=== PATIENT | female | born 1935 | race Caucasian/White ===

== ENCOUNTER 2016-09-28 18:30 | Inpatient (IN) | payer OTHER, MEDICARE ==
[~2016-09-28] VITALS: Ht 154.9 cm; Wt 69.3 kg
[~2016-09-28 18:30] MED LIST: GLUC10TA3 PO; LANTINJ SC; LISI-363 PO; MECL25 PO; SIMV40TA PO
[2016-09-28 18:45] VITALS: BP 195/73; PULSE 60; RESP 18; TEMP 98.2; O2SAT 96
[2016-09-28 18:50] VITALS: O2SAT 96
[2016-09-28] MEDS ORDERED: LISI-515 PO (18:57)
[2016-09-28] MEDS ORDERED: GLIP5TAB8 PO (18:57)
[2016-09-28] MEDS ORDERED: LANTUS2P SQ (18:57)
[2016-09-28] MEDS ORDERED: SIMV40TA PO (18:57)
[2016-09-28] MEDS ORDERED: SODIUM CHLORIDE 0.9% FLUSH 5 ML FLUSH IVF PRN (19:00)
[2016-09-28 19:15] LABS: AUTOMATED NEUTROPHIL # 13.6 TH/MM3 (1.8-7.7); BASOPHIL # 0.1 TH/MM3 (0-0.2); BASOPHIL % 0.5 % (0.0-2.0); EOSINOPHIL # 0.1 TH/MM3 (0-0.4); EOSINOPHIL % 0.7 % (0.0-4.0); HEMATOCRIT 37.3 % (35.0-46.0); HEMO FLAGS DIFF FINAL; LYMPH % 7.4 % (9.0-44.0); LYMPHOCYTE # 1.2 TH/MM3 (1.0-4.8); MEAN CELL VOLUME 88.8 FL (80.0-100.0); MEAN CORPUSCULAR HEMOGLOBIN 29.5 PG (27.0-34.0); MEAN CORPUSCULAR HGB CONC 33.3 % (32.0-36.0); NEUT % 87.4 % (16.0-70.0); PLATELET COUNT 358 TH/MM3 (150-450); RED CELL DISTRIBUTION WIDTH 12.2 % (11.6-17.2); WHITE BLOOD COUNT 15.6 TH/MM3 (4.0-11.0)
[2016-09-28 19:21] LABS: CHLORIDE 102 MEQ/L (98-107); POTASSIUM 3.7 MEQ/L (3.5-5.1); SODIUM (NA) 136 MEQ/L (136-145)
[2016-09-28 19:25] LABS: ANION GAP 11 MEQ/L (5-15); BLOOD UREA NITROGEN 22 MG/DL (7-18)
[2016-09-28 19:27] LABS: ALT (GPT) 41 U/L (10-53); AST (GOT) 36 U/L (15-37)
[2016-09-28 19:28] LABS: GLOMERULAR FILTRATION RATE 29 ML/MIN (>89)
[2016-09-28 19:29] LABS: TOTAL BILIRUBIN ADULT 0.3 MG/DL (0.2-1.0)
[2016-09-28 19:30] LABS: ALKALINE PHOSPHATASE 78 U/L (45-117)
--- NOTE | 2016-09-28 19:39 | PD ---
HPI Chief Complaint: Chest Pain Time Seen by Provider: 18:45 Travel History International Travel<30 days: No Contact w/Intl Traveler<30days: No Traveled to known affect area: No History of Present Illness HPI Patient is an 81-year-old female presents today with chief complaint of chest pain. Patient is also coming by her son who states that she was being brought into the emergency department for the chest pain but she is also been having nausea vomiting and diarrhea since [place] and some lower quadrant abdominal pain. Per the son patient is being brought into the emergency department for abdominal pain and started complaining of chest pain in route. She was concerned because she become fairly rundown. Has not followed up with her primary care physician. States her abdominal pain is sharp in nature particularly left lower quadrant. Intermittent. She states the pain in her left side of her chest is sharp. Patient is difficult to ascertain history from and when I ask her son if she has a history of Alzheimer's dementia he says he thinks is a possibility because of the past few years she has started to slip down. [facility] Past Medical History High Cholesterol: Yes Diabetes: Yes Patient Takes Glucophage: No Diminished Hearing: Yes Hypertension: Yes Tetanus Vaccination: > 5 Years Influenza Vaccination: No ?: Not Past Surgical History Appendectomy: Yes Social History Alcohol Use: No Tobacco Use: No Substance Use: No Allergies-Medications (Allergen,Severity, Reaction): Coded Allergies: Actos (Verified Adverse Reaction, Severe, "Makes the floor move", 09/28/16) Reported Meds & Prescriptions Reported Meds & Active Scripts Active Reported Simvastatin 40 Mg Tab 40 Mg PO HS Lisinopril 20 Mg Tab 20 Mg PO DAILY Glipizide 5 Mg Tab 5 Mg PO BIDAC Take 30 minutes before a meal Lantus Inj (Insulin Glargine) 1,000 Unit/10 Ml Vial 25 Units SQ HS Review of Systems Except as stated in HPI: all other systems reviewed are Neg Physical Exam Narrative GENERAL: Well-developed well-nourished in no apparent distress SKIN: Warm and dry. HEAD: Atraumatic. Normocephalic. EYES: Pupils equal and round. No scleral icterus. No injection or drainage. ENT: No nasal bleeding or discharge. Mucous membranes pink and moist. NECK: Trachea midline. No JVD. CARDIOVASCULAR: Regular rate and rhythm. No murmur appreciated. RESPIRATORY: No accessory muscle use. Clear to auscultation. Breath sounds equal bilaterally. GASTROINTESTINAL: Abdomen soft, non-tender, nondistended. Hepatic and splenic margins not palpable. MUSCULOSKELETAL: No obvious deformities. No clubbing. No cyanosis. No edema. NEUROLOGICAL: Awake and alert oriented to person place and time. No obvious cranial nerve deficits. Motor grossly within normal limits. Normal speech. PSYCHIATRIC: Appropriate mood and affect; insight and judgment normal. Data Data Last Documented VS Vital Signs Date Time Temp Pulse Resp B/P Pulse Ox O2 Delivery O2 Flow Rate FiO2 09/28/16 21:07 58 18 154/74 97 Room Air 09/28/16 18:45 98.2 Orders Complete Blood Count With Diff (09/28/16 18:52) Comprehensive Metabolic Panel (09/28/16 18:52) Lipase (09/28/16 18:52) Lactic Acid (09/28/16 18:52) Prothrombin Time / Inr (Pt) (09/28/16 18:52) Act Partial Throm Time (Ptt) (09/28/16 18:52) Urinalysis - C+S If Indicated (09/28/16 18:52) Iv Access Insert/Monitor (09/28/16 18:52) Ecg Monitoring (09/28/16 18:52) Oximetry (09/28/16 18:52) Sodium Chloride 0.9% Flush (Ns Flush) (09/28/16 19:00) Electrocardiogram (09/28/16 18:52) Chest, Single Ap (09/28/16 18:52) Bedside Glucose JULIETH.AC&HS (09/28/16 18:52) Ct Abd/Pel W/O Iv Contrast (09/28/16 18:52) Troponin I (09/28/16 18:40) Urine Culture (09/28/16 20:30) Admit Order (Ed Use Only) (09/28/16 ) Ciprofloxacin (Cipro) (09/28/16 21:45) Metronidazole (Flagyl) (09/28/16 21:45) Aspirin Chew (Aspirin Chew) (09/28/16 21:45) Ondansetron Inj (Zofran Inj) (09/28/16 21:45) Acetamin-Hydrocod 325-5 Mg ([place] 5-325 (1/3/17 21:45) Labs Laboratory Tests Test 09/28/16 09/28/16 09/28/16 18:40 19:20 20:30 White Blood Count 15.6 TH/MM3 Red Blood Count 4.20 MIL/MM3 Hemoglobin 12.4 GM/DL Hematocrit 37.3 % Mean Corpuscular Volume 88.8 FL Mean Corpuscular Hemoglobin 29.5 PG Mean Corpuscular Hemoglobin 33.3 % Concent Red Cell Distribution Width 12.2 % Platelet Count 358 TH/MM3 Mean Platelet Volume 7.5 FL Neutrophils (%) (Auto) 87.4 % Lymphocytes (%) (Auto) 7.4 % Monocytes (%) (Auto) 4.0 % Eosinophils (%) (Auto) 0.7 % Basophils (%) (Auto) 0.5 % Neutrophils # (Auto) 13.6 TH/MM3 Lymphocytes # (Auto) 1.2 TH/MM3 Monocytes # (Auto) 0.6 TH/MM3 Eosinophils # (Auto) 0.1 TH/MM3 Basophils # (Auto) 0.1 TH/MM3 CBC Comment DIFF FINAL Differential Comment Sodium Level 136 MEQ/L Potassium Level 3.7 MEQ/L Chloride Level 102 MEQ/L Carbon Dioxide Level 23.0 MEQ/L Anion Gap 11 MEQ/L Blood Urea Nitrogen 22 MG/DL Creatinine 1.70 MG/DL Estimat Glomerular Filtration 29 ML/MIN Rate Random Glucose 236 MG/DL Lactic Acid Level 1.0 mmol/L Calcium Level 9.2 MG/DL Total Bilirubin 0.3 MG/DL Aspartate Amino Transf 36 U/L (AST/SGOT) Alanine Aminotransferase 41 U/L (ALT/SGPT) Alkaline Phosphatase 78 U/L Troponin I LESS THAN 0.02 NG/ML Total Protein 7.6 GM/DL Albumin 3.0 GM/DL Lipase 208 U/L Prothrombin Time 10.8 SEC Prothromb Time International 1.0 RATIO Ratio Activated Partial 27.3 SEC Thromboplast Time Urine Color YELLOW Urine Turbidity HAZY Urine pH 5.5 Urine Specific [place] 1.022 Urine Protein TRACE mg/dL Urine Glucose (UA) 250 mg/dL Urine Ketones NEG mg/dL Urine Occult Blood TRACE Urine Nitrite NEG Urine Bilirubin NEG Urine Leukocyte Esterase SMALL Urine RBC 4-9 /hpf Urine WBC 20-24 /hpf Urine WBC Clumps FEW Urine Squamous Epithelial 0-5 /hpf Cells Urine Bacteria FEW /hpf Microscopic Urinalysis Comment CULTURE INDICATED MDM Medical Decision Making Medical Screen Exam Complete: Yes Emergency Medical Condition: Yes Interpretation(s) EKG shows sinus rhythm with a 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 There is no previous for comparison. No concerning ST T changes. This is an abnormal EKG. Differential Diagnosis Chest pain, diverticulitis, ACS, CA, abdominal abscess, UTI. Narrative Course Patient was roomed in the emergency department, labs are significant for creatinine 1.7 which appears to be about the patient's baseline. She was CAT scan without contrast which did show unconjugated diverticulitis of the sigmoid colon. Last 24 hours Impressions Chest X-Ray 09/28/161851 Signed Impressions: Service Date/Time: Wednesday, September 28, 2016 19:00 - CONCLUSION: No acute disease. Daniel Rivera MD Abdomen/Pelvis CT 09/28/161851 Signed Impressions: Service Date/Time: Wednesday, September 28, 2016 19:35 - CONCLUSION: Sigmoid diverticulitis. Daniel Rivera MD Patient's EKG does show bifascicular block but her story for ACS is fairly atypical. She does not meet criteria for emergent cardiac catheterization at this time. There is no previous EKG for comparison. Patient was given aspirin as well as [place] Cipro and Flagyl in the emergency department. Discussed with the patient and her family regarding ACS workup should include a stress test could consider doing this in outpatient versus inpatient. At this time the family would like to have her observed in the hospital and have consideration for stress test in the morning. They have been able to convince the patient to stay. Discussed with Dr. Scott who will admit. Diagnosis Primary Impression: Chest pain Qualified Code: R07.9 - Chest pain, unspecified type Additional Impression: Diverticulitis Admitting Information Admitting Physician Requests: Observation Disposition: DISCHARGE HOME Condition: Stable Long Waldrop MD Sep 28, 2016 19:39
--- NOTE | 2016-09-28 19:43 | RADHPO ---
EXAM DATE/TIME: 09/28/2016 19:00 [facility] COMPARISON: No previous studies available for comparison. INDICATIONS : Chest pain. MEDICAL HISTORY : Hypertension. SURGICAL HISTORY : None. ENCOUNTER: Initial ACUITY: 1 day PAIN SCORE: 8/10 LOCATION: Bilateral chest FINDINGS: A single view of the chest demonstrates the lungs to be symmetrically aerated without evidence of mas s, infiltrate or effusion. The cardiomediastinal contours are unremarkable. Osseous structures are intact. CONCLUSION: No acute disease. Daniel Rivera MD on September 28, 2016 at 19:42 Board Certified Radiologist. This report was verified electronically.
[2016-09-28 19:47] LABS: APTT (PATIENT) 27.3 SEC (24.3-30.1); PROTHROMBIN TIME - PATIENT 10.8 SEC (9.8-11.6)
[2016-09-28 19:48] VITALS: BP 150/72; PULSE 55; RESP 18; O2SAT 97
--- NOTE | 2016-09-28 20:10 | RADHPO ---
EXAM DATE/TIME: 09/28/2016 19:35 [facility] COMPARISON: No previous studies available for comparison. INDICATIONS : Abdominal pain. ORAL CONTRAST: No oral contrast ingested. RADIATION DOSE: 13.58 CTDIvol (mGy) MEDICAL HISTORY : Diabetes mellitus type 2. Hypertension. SURGICAL HISTORY : Appendectomy. ENCOUNTER: Initial ACUITY: 1 day PAIN SCALE: 8/10 LOCATION: Bilateral abdomen. TECHNIQUE: Volumetric scanning of the abdomen and pelvis was performed. Using automated exposure control and ad justment of the mA and/or kV according to patient size, radiation dose was kept as low as reasonably achievable to obtain optimal diagnostic quality images. FINDINGS: LOWER LUNGS: Slight scarring or atelectasis. LIVER: Homogeneous density without lesion. There is no dilation of the biliary tree. Multiple calcified gal lstones. SPLEEN: Normal size without lesion. PANCREAS: Within normal limits. KIDNEYS: Bilateral renal cysts. Mild renal atrophy. No evidence of hydronephrosis. ADRENAL GLANDS: Within normal limits. VASCULAR: Dense atherosclerotic calcification involving aorta and branch vessels. No aneurysm. BOWEL/MESENTERY: Small hiatal hernia. Distal colonic diverticulosis. Moderate inflammatory change adjacent to the prox imal to mid sigmoid colon consistent with diverticulitis. No definite extraluminal gas or fluid. No e vidence of obstruction. ABDOMINAL WALL: Within normal limits. RETROPERITONEUM: There is no lymphadenopathy. BLADDER: No wall thickening or mass. REPRODUCTIVE: Within normal limits. INGUINAL: There is no lymphadenopathy or hernia. MUSCULOSKELETAL: Within normal limits for patient age. CONCLUSION: Sigmoid diverticulitis. Daniel Rivera MD on September 28, 2016 at 20:05 Board Certified Radiologist. This report was verified electronically.
[2016-09-28 20:37] LABS: BLOOD, URINE TRACE (NEG); GLUCOSE,URINE 250 mg/dL (NEG); KETONE, URINE NEG (NEG); NITRITE,URINE NEG (NEG); PH, URINE 5.5 (5.0-8.5)
[2016-09-28 20:45] LABS: URINE COLOR YELLOW (YELLW/STRAW)
[2016-09-28 20:46] LABS: BACTERIA, URINE FEW /hpf; COMMENT (UR) CULTURE INDICATED; CULTURE IF INDICATED CULTURE INDICATED; SQUAMOUS EPITHELIAL CELL URINE 0-5 /hpf (0-5)
[2016-09-28 21:07] VITALS: BP 154/74; PULSE 58; RESP 18; O2SAT 97
[2016-09-28] MEDS ORDERED: ASPIRIN 81 MG CHEW TAB CHEW ONE (21:45)
[2016-09-28] MEDS ORDERED: metroNIDAZOLE 500 MG TAB PO ONE (21:45)
[2016-09-28] MEDS ORDERED: ACETAMINOPHEN/HYDROcodone 325 MG/5 MG TAB PO ONE (21:45)
[2016-09-28] MEDS ORDERED: ONDANSETRON HCL 4 MG/2 ML VIAL IV PUSH ONE (21:45)
[2016-09-28] MEDS ORDERED: CIPROFLOXACIN 500 MG TAB PO ONE (21:45)
[2016-09-28] MEDS ORDERED: MORPHINE SULFATE 4 MG/ML INJ IV PUSH PRN (22:00)
[2016-09-28] MEDS ORDERED: NALOXONE HCL 0.4 MG/ML AMP IV PRN (22:00)
[2016-09-28] MEDS ORDERED: SODIUM CHLORIDE 0.9% FLUSH 5 ML FLUSH FLUSH PRN (22:00)
[2016-09-28] MEDS: PIPERACIL-TAZO 4.5 GM PREMIX 100 ML IV SCH (23:01)
[2016-09-28 23:04] VITALS: BP 162/68; PULSE 61; RESP 18; O2SAT 97
[2016-09-29] VITALS (9 sets, daily range): BP systolic 152–192; BP diastolic 68–92; PULSE 57–67; RESP 16–20; TEMP 95.1–98.6; O2SAT 91–97
[2016-09-29] MEDS: PIPERACIL-TAZO 4.5 GM PREMIX 100 ML IV SCH ×2 (04:11→10:07)
[2016-09-29] MEDS: SODIUM CHLOR 0.9% 1000 ML INJ 1,000 ML IV SCH ×2 (05:44→17:40)
[2016-09-29] MEDS ORDERED: DEXTROSE 50% IN WATER 50 ML VIAL(D50) IV PUSH PRN (05:45)
[2016-09-29] MEDS ORDERED: GLUCAGON 1 MG/ML VIAL OTHER PRN (05:45)
[2016-09-29 06:24] LABS: AUTOMATED NEUTROPHIL # 15.5 TH/MM3 (1.8-7.7); BASOPHIL # 0.2 TH/MM3 (0-0.2); BASOPHIL % 1.4 % (0.0-2.0); EOSINOPHIL % 0.2 % (0.0-4.0); HEMATOCRIT 34.5 % (35.0-46.0); HEMO FLAGS DIFF FINAL; LYMPH % 5.6 % (9.0-44.0); MEAN CELL VOLUME 87.9 FL (80.0-100.0); MEAN CORPUSCULAR HEMOGLOBIN 29.8 PG (27.0-34.0); MEAN CORPUSCULAR HGB CONC 33.8 % (32.0-36.0); MONO % 4.3 % (0.0-8.0); NEUT % 88.5 % (16.0-70.0); PLATELET COUNT 338 TH/MM3 (150-450); RED BLOOD COUNT 3.93 MIL/MM3 (4.00-5.30); WHITE BLOOD COUNT 17.5 TH/MM3 (4.0-11.0)
[2016-09-29 06:35] LABS: CHLORIDE 102 MEQ/L (98-107); POTASSIUM 3.9 MEQ/L (3.5-5.1); SODIUM (NA) 137 MEQ/L (136-145)
[2016-09-29 06:36] LABS: CREATINE KINASE 52 U/L (26-192)
[2016-09-29 06:38] LABS: ANION GAP 12 MEQ/L (5-15); BICARBONATE 23.3 MEQ/L (21.0-32.0); BLOOD UREA NITROGEN 21 MG/DL (7-18)
[2016-09-29 06:42] LABS: GLOMERULAR FILTRATION RATE 31 ML/MIN (>89)
[2016-09-29] MEDS: INSULIN ASPART SUPPLEMENTAL SCALE SQ SCH ×4 (07:03→21:27)
[2016-09-29] MEDS ORDERED: ENOXAPARIN SODIUM 40 MG/0.4 ML SYRINGE SQ SCH (09:00)
[2016-09-29 09:54] LABS: HDL CHOLESTEROL 48.8 MG/DL (40.0-60.0)
[2016-09-29] MEDS: SODIUM CHLORIDE 0.9% FLUSH 5 ML FLUSH FLUSH SCH ×2 (10:06→21:23)
--- NOTE | 2016-09-29 10:45 | EKG ---
Date Performed: 09/29/2016 Time Performed: 05:43:08 PTAGE: 81 years EKG: Sinus arrhythmia. Left axis deviation RBBB with left anterior fascicular block Inferior inf arct - age undetermined Low QRS voltages in precordial leads Abnormal ECG NO PREVIOUS TRACING DOCTOR: Ronald Meyer Interpretating Date/Time 09/29/2016 10:45:19
--- NOTE | 2016-09-29 11:39 | EKG ---
Date Performed: 09/28/2016 Time Performed: 18:34:46 PTAGE: 81 years EKG: Sinus rhythm Left axis deviation RBBB with left anterior fascicular block Inferior infarct - age undetermined Pos sible anterior infarct - age undetermined Low QRS voltages in precordial leads Abnormal ECG PREVIOUS TRACING : 11/29/1996 17.44 DOCTOR: Ronald Meyer Interpretating Date/Time 09/29/2016 11:37:35
[2016-09-29] MEDS ORDERED: PIPERACIL-TAZO 2.25 GM PREMIX 50 ML IV SCH (11:51)
--- NOTE | 2016-09-29 13:25 | HHI.HP ---
[facility] Service [facility] Primary Care Physician Bony Phillips MD Admission Diagnosis Chest Pain Diagnoses: (1) Diverticulitis Diagnosis: Principal (2) Chest pain Diagnosis: Principal (3) Diarrhea in adult patient Diagnosis: Principal (4) Acute on chronic kidney disease, stage 3 Diagnosis: Principal (5) Leucocytosis Diagnosis: Principal (6) Hypertension Diagnosis: Secondary (7) Diabetes Diagnosis: Secondary Chief Complaint: Weakness, abdominal pain, diarrhea, chest pain Travel History International Travel<30 Days: No Contact w/Intl Traveler <30 Da: No Traveled to Known Affected Are: No Sepsis Criteria SIRS Criteria (2 or more): WBC > 84927, < 4000 or > 10% bands History of Present Illness 81-year-old female who lives by herself with known history of hypertension, diabetes, hyperlipidemia who presented to hospital because of over week history of abdominal discomfort whenever she eats, diarrhea. Information was taken from patient and son at bedside. As indicated by his son that he has been calling and check in on his mother because she is not been doing well since with the abdominal pain, diarrhea. She's not been eating because she was scared to eat because she eats a causing her to have abdominal pain and diarrhea. When he called her yesterday she also indicated that she is having some chest discomfort located in the upper chest region in the middle part of the chest without any radiation, nausea, vomiting, diaphoresis, shortness of breath, dyspnea. Patient indicates that the pain is 8 /10 on a pain scale, and remained constant from yesterday morning until she came to the hospital for evaluation. Because of those above reasons Caesar the hospital for evaluation. Workup does indicate leukocytosis, diverticulitis by CT scan. Initial cardiac enzymes were unremarkable. Patient does have increased risk factors for cardiac disease to include age, female, hypertension , hypokalemia, diabetes. I discussed with her possible need for stress test for further delineation. However she states that she would not want any intervention done. She is in agreement to pursue medical management only. At the present time the patient does look rather pale, lethargic, has not ate much in the last few days. Patient readmitted for continued management and care Review of Systems Constitutional: DENIES: Diaphoretic episodes, Fatigue, Fever, Weight gain, Weight loss, Chills, Dizziness, Change in appetite, Night Sweats Eyes: DENIES: Blurred vision, Diplopia, Eye inflammation, Eye pain, Vision loss , Double Vision Ears, nose, mouth, throat: DENIES: Vertigo, Nasal discharge, Throat pain, Ear Pain, Running Nose, Sinus Pain Respiratory: DENIES: Apneas, Cough, Snoring, Wheezing, Hemoptysis, Sputum production, Shortness of breath Cardiovascular: COMPLAINS OF: Chest pain, DENIES: Palpitations, Syncope, Dyspnea on Exertion, Lower Extremity Edema, Orthopnea Gastrointestinal: COMPLAINS OF: Abdominal pain, Diarrhea, DENIES: Black stools , Bloody stools, Constipation, Nausea, Vomiting, Difficulty Swallowing, Anorexia Neurologic: DENIES: Abnormal gait, Headache, Localized weakness, Paresthesias, Seizures, Speech Problems, Tremor, Poor Balance Psychiatric: DENIES: Anxiety, Confusion, Mood changes, Depression Past Family Social History Past Medical History Hypertension Hyperkalemia Diabetes Past Surgical History Tonsillectomy Appendectomy Hysterectomy Reported Medications Reported Meds & Active Scripts Active Reported Simvastatin 40 Mg Tab 40 Mg PO HS Lisinopril 20 Mg Tab 20 Mg PO DAILY Glipizide 5 Mg Tab 5 Mg PO BIDAC Take 30 minutes before a meal Lantus Inj (Insulin Glargine) 1,000 Unit/10 Ml Vial 25 Units SQ HS Allergies: Coded Allergies: Actos (Verified Adverse Reaction, Severe, "Makes the floor move", 09/28/16) Family History Reviewed and unremarkable Social History Patient denies any tobacco, alcohol or illicit drugs Physical Exam Vital Signs Vital Signs Date Time Temp Pulse Resp B/P Pulse Ox O2 Delivery O2 Flow Rate FiO2 09/29/16 10:12 57 16 192/76 95 Room Air 09/29/16 07:06 57 16 174/92 93 Room Air 09/29/16 07:04 16 93 Room Air 09/29/16 06:07 60 18 156/91 96 Room Air 09/29/16 05:02 62 18 169/74 96 Room Air 09/29/16 03:14 58 18 152/68 97 Room Air 09/29/16 01:00 58 18 165/75 96 Room Air 09/28/16 23:04 61 18 162/68 97 Room Air 09/28/16 21:07 58 18 154/74 97 Room Air 09/28/16 19:48 55 18 150/72 97 Room Air 09/28/16 18:50 96 Room Air 09/28/16 18:45 60 09/28/16 18:45 98.2 60 18 195/73 96 Physical Exam GENERAL: Well-developed, well-nourished, in no acute distress. alert and orientated HEENT: Head is normocephalic without any lesions or masses noted. Facial features are symmetric. Eyes: Pupils equal round reactive to light. Extraocular muscles are intact. Conjunctivae were clear. Oropharyngeal: Pharynx without any erythema edema. Tongue is midline without deviation. Buccal mucosa is moist without any masses or lesions NECK: Supple without any masses. Trachea midline no deviation. No JVD, no bruits are appreciated CARDIAC: Regular rhythm, regular rate. S1/S2 are heard. 2/6 ejection murmur, no gallops or rubs. LUNGS: Clear to auscultation bilaterally. No wheeze, rhonchi or rales. No use of accessory muscles on inspiration or expiration. ABDOMEN: Soft, left lower quadrant tenderness on deep palpation. Nondistended. Bowel sounds heard in all 4 quadrants. No organomegaly or masses. Negative rebound, negative guarding EXTREMITIES: No edema, pulses are equal bilaterally. No cyanosis or clubbing NEUROLOGY: Mood and affect appear appropriate. Cranial nerves II through XII grossly intact. Muscle strength 5/5 in upper and lower extremities bilaterally. Deep tendon reflexes are 2+ in upper and lower extremities bilaterally. Laboratory Laboratory Tests Test 09/28/16 09/28/16 09/28/16 09/29/16 18:40 19:20 20:30 06:00 White Blood Count 15.6 17.5 Red Blood Count 4.20 3.93 Hemoglobin 12.4 11.7 Hematocrit 37.3 34.5 Mean Corpuscular Volume 88.8 87.9 Mean Corpuscular Hemoglobin 29.5 29.8 Mean Corpuscular Hemoglobin 33.3 33.8 Concent Red Cell Distribution Width 12.2 12.0 Platelet Count 358 338 Mean Platelet Volume 7.5 7.3 Neutrophils (%) (Auto) 87.4 88.5 Lymphocytes (%) (Auto) 7.4 5.6 Monocytes (%) (Auto) 4.0 4.3 Eosinophils (%) (Auto) 0.7 0.2 Basophils (%) (Auto) 0.5 1.4 Neutrophils # (Auto) 13.6 15.5 Lymphocytes # (Auto) 1.2 1.0 Monocytes # (Auto) 0.6 0.8 Eosinophils # (Auto) 0.1 0.0 Basophils # (Auto) 0.1 0.2 CBC Comment DIFF FINAL DIFF FINAL Differential Comment Sodium Level 136 137 Potassium Level 3.7 3.9 Chloride Level 102 102 Carbon Dioxide Level 23.0 23.3 Anion Gap 11 12 Blood Urea Nitrogen 22 21 Creatinine 1.70 1.60 Estimat Glomerular Filtration 29 31 Rate Random Glucose 236 157 Lactic Acid Level 1.0 Calcium Level 9.2 8.5 Total Bilirubin 0.3 Aspartate Amino Transf 36 (AST/SGOT) Alanine Aminotransferase 41 (ALT/SGPT) Alkaline Phosphatase 78 Troponin I LESS THAN 0.02 LESS THAN 0.02 Total Protein 7.6 Albumin 3.0 Lipase 208 Prothrombin Time 10.8 Prothromb Time International 1.0 Ratio Activated Partial 27.3 Thromboplast Time Urine Color YELLOW Urine Turbidity HAZY Urine pH 5.5 Urine Specific [place] 1.022 Urine Protein TRACE Urine Glucose (UA) 250 Urine Ketones NEG Urine Occult Blood TRACE Urine Nitrite NEG Urine Bilirubin NEG Urine Leukocyte Esterase SMALL Urine RBC 4-9 Urine WBC 20-24 Urine WBC Clumps FEW Urine Squamous Epithelial 0-5 Cells Urine Bacteria FEW Microscopic Urinalysis Comment CULTURE INDICATED Total Creatine Kinase 52 Triglycerides Level 110 Cholesterol Level 157 LDL Cholesterol 86 HDL Cholesterol 48.8 Cholesterol/HDL Ratio 3.21 Date/Time Procedure Status Source Growth 09/28/16 20:30 Urine Culture Received Urine Clean Catch Pending Result Diagram: 09/29/16 0600 09/29/16 0600 Imaging Last Impressions Chest X-Ray 09/28/161851 Signed Impressions: Service Date/Time: Wednesday, September 28, 2016 19:00 - CONCLUSION: No acute disease. Daniel Rivera MD Abdomen/Pelvis CT 09/28/161851 Signed Impressions: Service Date/Time: Wednesday, September 28, 2016 19:35 - CONCLUSION: Sigmoid diverticulitis. Daniel Rivera MD Assessment and Plan Assessment and Plan Acute sigmoid diverticulitis, patient with abdominal pain, diarrhea illness Continue Zosyn Obtain stool studies for C. difficile, enteric pathogen Continue to advance diet Continue pain control Leukocytosis likely secondary to diverticulitis Continue monitor CBC Acute renal failure on chronic kidney disease stage III Continue IV fluids Monitor renal function Avoid nephrotoxins Chest pain, atypical Serial cardiac enzymes which have been reviewed by me over the last 12 hours were negative Serial EKGs which reviewed by myself show right bundle branch block without any changes Patient ruled out for any acute coronary event at this time. Discussed with the patient, the possible need for further workup to include stress test and possible cardiac catheterization. Patient states that she does not want to undergo any cardiac catheterization or any invasive procedure. I discussed with her medical management for her chest discomfort, she is in agreement We'll start aspirin, unable to use beta shaun due to bradycardia, nitroglycerin as needed Hypertension Home medications have been continued Hyperlipidemia Continue statin LDL 86 DVT prevention Lovenox Written by Willard Turner PA-C, acting as scribe for Dr. Haque on on 09/29/16 at 1330. The documentation accurately reflects the work and decisions performed face-to- face by Dr. Haque on on 09/29/16 at 1330. Physician Certification 2 Midnight Certification Type: Admission for Inpatient Services Order for Inpatient Services The services are ordered in accordance with Medicare regulations or non- Medicare payer requirements, as applicable. In the case of services not specified as inpatient-only, they are appropriately provided as inpatient services in accordance with the 2-midnight benchmark. Estimated LOS (days): 2 days is the estimated time the patient will need to remain in the hospital, assuming treatment plan goals are met and no additional complications. Post-Hospital Plan: Not yet determined Problem Qualifiers (1) Chest pain: Qualified Code: R07.9 - Chest pain, unspecified type (2) Diabetes: Qualified Code: E11.8 - Type 2 diabetes mellitus with complication, with long- term current use of insulin Willard Turner Sep 29, 2016 13:25
[2016-09-29] MEDS ORDERED: NITROGLYCERIN 0.4 MG SL 25 TABS/BTL SL PRN (13:30)
--- NOTE | 2016-09-29 13:31 | HHI.FF ---
Face to Face Verification Diagnosis: (1) Diverticulitis (2) Diabetes (3) Hypertension (4) Leucocytosis Physical Therapy Order: Evaluate and Treat, Improve ambulation, Strength and gait training Home Health Nursing Order: Medical education Signs/symptoms of disease process Nursing assessment with vital signs I have seen patient Blanca Corley on 09/29/16. My clinical findings support the need for the requested home health care services because: Deconditioned w/ increased weakness Limited ability to care for self I certify that my clinical findings support that this patient is homebound because: Unsteady gait/balance Willard Turner Sep 29, 2016 13:31
[2016-09-29] MEDS: LISINOPRIL 20 MG TAB PO SCH (15:18)
--- NOTE | 2016-09-29 16:56 | EKG ---
Date Performed: 09/29/2016 Time Performed: 11:19:02 PTAGE: 81 years EKG: BASELINE ARTIFACT PRESENT. Unclear underlying rhythm Left axis deviation RBBB with left ant erior fascicular block Inferior infarct - age undetermined Possible anterior infarct - age undetermin ed Low QRS voltages in precordial leads Abnormal ECG COMPARED TO PRIOR ELECTROCARDIOGRAM, Unfortunate ly both EKGs have artifact and I cannot compare rhythm. PREVIOUS TRACING : 09/29/2016 05.43 DOCTOR: Osmel Ruiz Interpretating Date/Time 09/29/2016 16:54:30
[2016-09-29] MEDS: PIPERACIL-TAZO 2.25 GM PREMIX 50 ML IV SCH (18:00)
[2016-09-29] MEDS: PRAVASTATIN SOD 80 MG TAB PO SCH (21:23)
[2016-09-29] MEDS: INSULIN DETEMIR 100 UNITS/ML VIAL SQ SCH (21:24)
[2016-09-30] VITALS (7 sets, daily range): BP systolic 140–191; BP diastolic 66–77; PULSE 65–75; RESP 18–20; TEMP 97.1–99.5; O2SAT 90–98
[2016-09-30] MEDS: PIPERACIL-TAZO 2.25 GM PREMIX 50 ML IV SCH ×3 (02:33→16:51)
[2016-09-30] MEDS: SODIUM CHLOR 0.9% 1000 ML INJ 1,000 ML IV SCH ×2 (02:33→16:50)
[2016-09-30] MEDS: INSULIN ASPART SUPPLEMENTAL SCALE SQ SCH ×4 (06:07→21:19)
[2016-09-30 06:10] LABS: BASOPHIL % 0.2 % (0.0-2.0); EOSINOPHIL % 0.1 % (0.0-4.0); HEMATOCRIT 33.1 % (35.0-46.0); HEMO FLAGS DIFF FINAL; LYMPH % 3.6 % (9.0-44.0); LYMPHOCYTE # 0.8 TH/MM3 (1.0-4.8); MEAN CELL VOLUME 87.9 FL (80.0-100.0); MEAN CORPUSCULAR HEMOGLOBIN 29.9 PG (27.0-34.0); MONO % 6.5 % (0.0-8.0); NEUT % 89.6 % (16.0-70.0); PLATELET COUNT 312 TH/MM3 (150-450); RED BLOOD COUNT 3.76 MIL/MM3 (4.00-5.30); RED CELL DISTRIBUTION WIDTH 12.1 % (11.6-17.2); WHITE BLOOD COUNT 21.2 TH/MM3 (4.0-11.0)
[2016-09-30 06:17] LABS: POTASSIUM 3.6 MEQ/L (3.5-5.1)
[2016-09-30 06:22] LABS: BICARBONATE 23.5 MEQ/L (21.0-32.0); MAGNESIUM 1.4 MG/DL (1.5-2.5)
[2016-09-30] MEDS ORDERED: MAGNESIUM OXIDE 400 MG TAB PO ONE (09:00)
--- NOTE | 2016-09-30 09:02 | HHI.PR ---
Subjective Remarks Patient seen and examined today with Dr. Haque, patient states that she is feeling better. She has not had any abdominal pain, diarrhea or bowel movement since being admitted to the hospital. Patient states that she ate some dinner last night, she admits that it wasn't much but she did eat. Patient is very eager to go home. Objective Vitals Vital Signs Date Time Temp Pulse Resp B/P Pulse Ox O2 Delivery O2 Flow Rate FiO2 09/30/16 04:00 98.8 66 20 140/71 92 09/30/16 00:00 97.1 66 20 178/66 98 09/29/16 20:00 95.1 67 20 166/79 91 09/29/16 16:00 98.3 62 18 170/70 95 09/29/16 13:00 98.6 60 18 190/71 97 09/29/16 13:00 98.6 60 16 190/71 97 09/29/16 10:12 57 16 192/76 95 Room Air I/O 09/29/16 09/29/16 09/29/16 09/30/16 09/30/16 09/30/16 07:00 15:00 23:00 07:00 15:00 23:00 Intake Total 580 ml 160 ml 918 ml Balance 580 ml 160 ml 918 ml Intake Oral 480 ml 160 ml 240 ml IV Total 100 ml 678 ml # Voids 2 2 5 # Bowel Movements 0 0 Result Diagram: 09/30/16 0515 09/30/16 0515 Objective Remarks GENERAL: Well-developed, well-nourished, in no acute distress. alert and orientated HEENT: Head is normocephalic without any lesions or masses noted. Facial features are symmetric. Eyes: Extraocular muscles are intact. Conjunctivae were clear. NECK: Supple without any masses. Trachea midline no deviation. No JVD, CARDIAC: Regular rhythm, regular rate. S1/S2 are heard. No murmurs gallops or rubs. LUNGS: Clear to auscultation bilaterally. No wheeze, rhonchi or rales. No use of accessory muscles on inspiration or expiration. ABDOMEN: Soft, nontender. Nondistended. Bowel sounds heard in all 4 quadrants. No organomegaly or masses. Negative rebound, negative guarding EXTREMITIES: No edema, pulses are equal bilaterally. No cyanosis or clubbing NEUROLOGY: Mood and affect appear appropriate. Cranial nerves II through XII grossly intact. Moving all extremities, speech is clear Urinary Catheter: No Vascular Central Line Catheter: No A/P Assessment and Plan Acute sigmoid diverticulitis, patient with abdominal pain, diarrhea illness Continue Zosyn Awaiting stool studies for C. difficile, enteric pathogen, however patient has not had any recurrent diarrhea or bowel movement Continue to advance diet Continue pain control Leukocytosis, worsening likely secondary to diverticulitis Continue monitor CBC Urinary tract infection Await urine culture Patient is on Zosyn for antibiotics Acute renal failure on chronic kidney disease stage III, improved with IV hydration Continue IV fluids Monitor renal function Avoid nephrotoxins Chest pain, atypical, no recurrent chest pain Serial cardiac enzymes which have been reviewed by me over the last 12 hours were negative Serial EKGs which reviewed by myself show right bundle branch block without any changes Patient ruled out for any acute coronary event at this time. Discussed with the patient, the possible need for further workup to include stress test and possible cardiac catheterization. Patient states that she does not want to undergo any cardiac catheterization or any invasive procedure. I discussed with her medical management for her chest discomfort, she is in agreement Continue aspirin, unable to use beta shaun due to bradycardia, nitroglycerin as needed Hypertension, blood pressure running high yesterday, however normal this morning Home medications have been continued Hyperlipidemia Continue statin LDL 86 DVT prevention Lovenox Written by Willard Turner PA-C, acting as scribe for Dr. Haque on on 09/30/16 at 1600. The documentation accurately reflects the work and decisions performed face-to- face by Dr. Haque on on 09/30/16 at 1600. Willard Turner Sep 30, 2016 09:02 Activity: Ad rikki. Diet: Healthy heart diet Medications per medication reconciliation Follow-up primary medical doctor in one week Willard Turner Sep 30, 2016 09:02
[2016-09-30] MEDS: LISINOPRIL 20 MG TAB PO SCH (10:43)
[2016-09-30] MEDS: ASPIRIN EC 81 MG TABEC PO SCH (10:44)
[2016-09-30] MEDS: SODIUM CHLORIDE 0.9% FLUSH 5 ML FLUSH FLUSH SCH ×2 (10:45→21:00)
[2016-09-30] MEDS: ENOXAPARIN SODIUM 30 MG/0.3 ML SYRINGE SQ SCH (10:45)
[2016-09-30] MEDS ORDERED: DOCUSATE SODIUM 50 MG/SENNA 8.6 MG TAB PO ONE (16:00)
[2016-09-30] MEDS ORDERED: cloNIDine HCL 0.1 MG TAB PO PRN (17:30)
[2016-09-30] MEDS: NIFEdipine 10 MG CAP PO SCH (21:13)
[2016-09-30] MEDS: INSULIN DETEMIR 100 UNITS/ML VIAL SQ SCH (21:13)
[2016-09-30] MEDS: PRAVASTATIN SOD 80 MG TAB PO SCH (21:13)
[2016-10-01] VITALS (8 sets, daily range): BP systolic 95–128; BP diastolic 44–63; PULSE 71–83; RESP 18–20; TEMP 96.5–98.8; O2SAT 85–99
[2016-10-01] MEDS: PIPERACIL-TAZO 2.25 GM PREMIX 50 ML IV SCH ×4 (01:45→21:20)
[2016-10-01 05:32] LABS: AUTOMATED NEUTROPHIL # 13.2 TH/MM3 (1.8-7.7); BASOPHIL % 0.1 % (0.0-2.0); EOSINOPHIL # 0.1 TH/MM3 (0-0.4); EOSINOPHIL % 0.5 % (0.0-4.0); HEMATOCRIT 32.4 % (35.0-46.0); LYMPH % 6.5 % (9.0-44.0); MEAN CELL VOLUME 88.7 FL (80.0-100.0); MEAN CORPUSCULAR HEMOGLOBIN 29.9 PG (27.0-34.0); MEAN CORPUSCULAR HGB CONC 33.7 % (32.0-36.0); MONO % 5.9 % (0.0-8.0); PLATELET COUNT 316 TH/MM3 (150-450); RED BLOOD COUNT 3.65 MIL/MM3 (4.00-5.30); RED CELL DISTRIBUTION WIDTH 11.9 % (11.6-17.2); WHITE BLOOD COUNT 15.2 TH/MM3 (4.0-11.0)
[2016-10-01 05:33] LABS: HEMO FLAGS DIFF FINAL
[2016-10-01 05:40] LABS: POTASSIUM 3.6 MEQ/L (3.5-5.1)
[2016-10-01 05:45] LABS: BICARBONATE 25.2 MEQ/L (21.0-32.0); MAGNESIUM 1.7 MG/DL (1.5-2.5)
[2016-10-01] MEDS: INSULIN ASPART SUPPLEMENTAL SCALE SQ SCH ×4 (06:24→21:04)
[2016-10-01] MEDS: SODIUM CHLOR 0.9% 1000 ML INJ 1,000 ML IV SCH (06:34)
[2016-10-01] MEDS: SODIUM CHLORIDE 0.9% FLUSH 5 ML FLUSH FLUSH SCH ×2 (09:00→21:03)
[2016-10-01] MEDS: LISINOPRIL 20 MG TAB PO SCH (10:27)
[2016-10-01] MEDS: ASPIRIN EC 81 MG TABEC PO SCH (10:27)
[2016-10-01] MEDS: NIFEdipine 10 MG CAP PO SCH ×2 (10:27→21:02)
[2016-10-01] MEDS: ENOXAPARIN SODIUM 30 MG/0.3 ML SYRINGE SQ SCH (10:28)
[2016-10-01] MEDS: POLYETHYLENE GLYCOL 17 GM PKG PO SCH (10:28)
--- NOTE | 2016-10-01 11:25 | RADHPO ---
EXAM DATE/TIME: 10/01/2016 10:07 [facility] COMPARISON: No previous studies available for comparison. INDICATIONS : Chest pain, short of breath. MEDICAL HISTORY : Hypertension. SURGICAL HISTORY : None. ENCOUNTER: Subsequent ACUITY: 3 days PAIN SCORE: 3/10 LOCATION: Bilateral chest FINDINGS: A single view of the chest demonstrates elevated right hemidiaphragm with some basilar density most c haracteristic of atelectasis. No effusion. No pneumothorax. Heart size mildly enlarged. CONCLUSION: 1. Cardiomegaly with basal atelectasis. Elevated right hemidiaphragm. Flex Wong MD on October 01, 2016 at 11:22 Board Certified Radiologist. This report was verified electronically.
[2016-10-01 11:36] LABS: BLOOD GAS BASE EXCESS -1.5 mmol/L (-2-2); BLOOD GAS CARBOXYHEMOGLOBIN 1.9 % (0-4); BLOOD GAS HCO3 22 mmol/L (22-26); BLOOD GAS METHEMOGLOBIN 1.1 % (0-2); BLOOD GAS O2 HGB SATURATION 86 % (90-100); BLOOD GAS OXYGEN CONTENT 13.5 Vol % (12.0-20.0); BLOOD GAS PCO2 31 mmHG (38-42); BLOOD GAS PO2 52 mmHG (61-120); BLOOD GAS TOTAL HGB 11.2 G/DL (12.0-16.0); TEMP CORR TO 98.6
[2016-10-01 11:37] LABS: CRITICAL VALUE YES; DRAW SITE LT RADIAL; LITER FLOW 21 L/M; NUMBER OF ARTERIAL PUNCTURES 1; OXYGEN DEVICE ROOM AIR; STAT NO; ULNAR PULSE PRESENT
[2016-10-01] MEDS ORDERED: FUROSEMIDE 20 MG/2 ML VIAL IV PUSH ONE (11:45)
[2016-10-01] MEDS ORDERED: POTASSIUM CHLORIDE 10 MEQ CONTROLLED RELEASE TAB PO ONE (11:45)
--- NOTE | 2016-10-01 11:50 | HHI.PR ---
Subjective Remarks Patient seen and examined today with Dr. Haque. Respiratory therapist indicates that patient had low O2 85% saturations morning. Placed her on 2 L nasal cannula with improvement to 92%. Patient still has not had a bowel movement. Objective Vitals Vital Signs Date Time Temp Pulse Resp B/P Pulse Ox O2 Delivery O2 Flow Rate FiO2 10/01/16 11:40 97.4 78 20 95/44 87 10/01/16 08:00 98.8 71 20 128/61 85 10/01/16 04:00 97.7 78 20 119/58 99 10/01/16 00:00 96.8 79 20 110/54 90 09/30/16 20:00 98.9 75 20 148/68 91 09/30/16 16:00 99.5 66 20 191/77 90 09/30/16 12:00 97.4 65 20 182/75 94 I/O 09/30/16 09/30/16 09/30/16 10/01/16 10/01/16 10/01/16 07:00 15:00 23:00 07:00 15:00 23:00 Intake Total 918 ml 850 ml 828 ml 1236 ml Balance 918 ml 850 ml 828 ml 1236 ml Intake Oral 240 ml 850 ml 240 ml 560 ml IV Total 678 ml 588 ml 676 ml # Voids 5 6 3 4 # Bowel Movements 0 0 0 0 Result Diagram: 10/01/16 0501 10/01/16 0501 Objective Remarks GENERAL: Well-developed, well-nourished, in no acute distress. alert and orientated HEENT: Head is normocephalic without any lesions or masses noted. Facial features are symmetric. Eyes: Extraocular muscles are intact. Conjunctivae were clear. NECK: Supple without any masses. Trachea midline no deviation. No JVD, CARDIAC: Regular rhythm, regular rate. S1/S2 are heard. No murmurs gallops or rubs. LUNGS: Clear to auscultation bilaterally. No wheeze, rhonchi or rales. No use of accessory muscles on inspiration or expiration. ABDOMEN: Soft, nontender. Nondistended. Bowel sounds heard in all 4 quadrants. No organomegaly or masses. Negative rebound, negative guarding EXTREMITIES: No edema, pulses are equal bilaterally. No cyanosis or clubbing NEUROLOGY: Mood and affect appear appropriate. Cranial nerves II through XII grossly intact. Moving all extremities, speech is clear Urinary Catheter: No Vascular Central Line Catheter: No A/P Assessment and Plan Acute sigmoid diverticulitis, patient with abdominal pain, no longer with any diarrhea Continue Zosyn Unable to give samples because of no diarrhea. Discontinue stool studies and isolation Continue to advance diet Continue pain control Hypoxia, likely secondary to lower respiratory effort and atelectasis Chest x-ray does show bibasilar atelectasis ABG Start incentive spirometry Obtain walk study for home oxygen Leukocytosis, improving likely secondary to diverticulitis Continue monitor CBC Urinary tract infection Urine culture 10-50,000 of gram-positive varsha Patient is on Zosyn for antibiotics Acute renal failure on chronic kidney disease stage III, improved with IV hydration Continue IV fluids Monitor renal function Avoid nephrotoxins Chest pain, atypical, no recurrent chest pain Serial cardiac enzymes which have been reviewed by me over the last 12 hours were negative Serial EKGs which reviewed by myself show right bundle branch block without any changes Patient ruled out for any acute coronary event at this time. Discussed with the patient, the possible need for further workup to include stress test and possible cardiac catheterization. Patient states that she does not want to undergo any cardiac catheterization or any invasive procedure. I discussed with her medical management for her chest discomfort, she is in agreement Continue aspirin, unable to use beta shaun due to bradycardia, nitroglycerin as needed Hypertension, blood pressure running high yesterday, however normal this morning Home medications have been continued Hyperlipidemia Continue statin LDL 86 DVT prevention Lovenox Written by Willard Turner PA-C, acting as scribe for Dr. Haque on on 10/01/16 at . The documentation accurately reflects the work and decisions performed face-to- face by Dr. Haque on on 10/01/16 at . Discharge Planning Discharge home in stable condition Willard Turner Oct 01, 2016 11:50
[2016-10-01] MEDS: RESP: ALBUTEROL 2.5 MG/IPRATROPIUM 0.5 MG NEB (SCH) NEB ×3 (12:15→18:59)
[2016-10-01] MEDS: PRAVASTATIN SOD 80 MG TAB PO SCH (21:02)
[2016-10-01] MEDS: INSULIN DETEMIR 100 UNITS/ML VIAL SQ SCH (21:04)
[2016-10-02] VITALS: BP 135/57; PULSE 83; RESP 20; TEMP 98.3; O2SAT 97
[2016-10-02 04:00] VITALS: BP 135/66; PULSE 83; RESP 22; TEMP 98.5; O2SAT 92
[2016-10-02] MEDS: PIPERACIL-TAZO 2.25 GM PREMIX 50 ML IV SCH ×2 (04:00→10:00)
[2016-10-02 06:43] LABS: AUTOMATED NEUTROPHIL # 12.2 TH/MM3 (1.8-7.7); BASOPHIL % 0.1 % (0.0-2.0); EOSINOPHIL # 0.1 TH/MM3 (0-0.4); HEMATOCRIT 31.5 % (35.0-46.0); LYMPH % 6.9 % (9.0-44.0); MEAN CELL VOLUME 88.9 FL (80.0-100.0); MEAN CORPUSCULAR HEMOGLOBIN 29.5 PG (27.0-34.0); MEAN CORPUSCULAR HGB CONC 33.1 % (32.0-36.0); PLATELET COUNT 362 TH/MM3 (150-450); RED BLOOD COUNT 3.54 MIL/MM3 (4.00-5.30); RED CELL DISTRIBUTION WIDTH 12.6 % (11.6-17.2); WHITE BLOOD COUNT 14.1 TH/MM3 (4.0-11.0)
[2016-10-02 06:47] LABS: HEMO FLAGS DIFF FINAL
[2016-10-02 06:51] LABS: POTASSIUM 3.4 MEQ/L (3.5-5.1)
[2016-10-02] MEDS: INSULIN ASPART SUPPLEMENTAL SCALE SQ SCH ×2 (06:51→11:00)
[2016-10-02 07:00] LABS: BICARBONATE 24.4 MEQ/L (21.0-32.0)
[2016-10-02] MEDS: RESP: ALBUTEROL 2.5 MG/IPRATROPIUM 0.5 MG NEB (SCH) NEB ×2 (07:40→11:17)
[2016-10-02 07:43] VITALS: O2SAT 93
[2016-10-02 08:00] VITALS: BP 137/61; PULSE 88; RESP 20; TEMP 97.8; O2SAT 94
[2016-10-02] MEDS: LISINOPRIL 20 MG TAB PO SCH (08:24)
[2016-10-02] MEDS: NIFEdipine 10 MG CAP PO SCH (08:24)
[2016-10-02] MEDS: ASPIRIN EC 81 MG TABEC PO SCH (08:25)
[2016-10-02] MEDS: ENOXAPARIN SODIUM 30 MG/0.3 ML SYRINGE SQ SCH (08:25)
[2016-10-02] MEDS: POLYETHYLENE GLYCOL 17 GM PKG PO SCH (08:25)
[2016-10-02] MEDS: SODIUM CHLORIDE 0.9% FLUSH 5 ML FLUSH FLUSH SCH (08:25)
--- NOTE | 2016-10-02 09:46 | HHI.PR ---
Subjective Remarks Patient seen and examined today. Patient denies any shortness of breath, dyspnea. Patient has not had a bowel movement yet. She has been using the incentive spirometry. Objective Vitals Vital Signs Date Time Temp Pulse Resp B/P Pulse Ox O2 Delivery O2 Flow Rate FiO2 10/02/16 08:00 97.8 88 20 137/61 94 10/02/16 07:43 93 Nasal Cannula 2.00 10/02/16 04:00 98.5 83 22 135/66 92 10/02/16 00:00 98.3 83 20 135/57 97 10/01/16 20:49 97.6 83 18 119/48 98 10/01/16 19:00 94 2.00 10/01/16 16:00 96.5 81 20 121/63 93 10/01/16 15:15 93 Nasal Cannula 2.00 10/01/16 11:40 97.4 78 20 95/44 87 I/O 10/01/16 10/01/16 10/01/16 10/02/16 10/02/16 10/02/16 07:00 15:00 23:00 07:00 15:00 23:00 Intake Total 1236 ml 630 ml 610 ml Output Total 300 ml Balance 1236 ml 630 ml 610 ml -300 ml Intake Oral 560 ml 630 ml 210 ml IV Total 676 ml 400 ml Output Urine Total 300 ml # Voids 4 4 2 # Bowel Movements 0 0 Result Diagram: 10/02/16 0603 10/02/16 0603 Objective Remarks GENERAL: Well-developed, well-nourished, in no acute distress. alert and orientated HEENT: Head is normocephalic without any lesions or masses noted. Facial features are symmetric. Eyes: Extraocular muscles are intact. Conjunctivae were clear. NECK: Supple without any masses. Trachea midline no deviation. No JVD, CARDIAC: Regular rhythm, regular rate. S1/S2 are heard. No murmurs gallops or rubs. LUNGS: Clear to auscultation bilaterally. No wheeze, rhonchi or rales. No use of accessory muscles on inspiration or expiration. ABDOMEN: Soft, nontender. Nondistended. Bowel sounds heard in all 4 quadrants. No organomegaly or masses. Negative rebound, negative guarding EXTREMITIES: No edema, pulses are equal bilaterally. No cyanosis or clubbing NEUROLOGY: Mood and affect appear appropriate. Cranial nerves II through XII grossly intact. Moving all extremities, speech is clear Urinary Catheter: No Vascular Central Line Catheter: No A/P Assessment and Plan Acute sigmoid diverticulitis, patient with abdominal pain, no longer with any diarrhea Antibiotics to include Zosyn, changed to by mouth meds today Unable to give samples because of no diarrhea. Discontinued stool studies and isolation Continue to advance diet Continue pain control Hypoxia, likely secondary to poor respiratory effort and atelectasis Chest x-ray does show bibasilar atelectasis ABG Continue incentive spirometry Walk study indicates need for home oxygen D-Dimer elevated, VQ scan was done which indicated low probability for pulmonary emboli Consulted manager case management arrange home O2 Leukocytosis, improving likely secondary to diverticulitis Continue monitor CBC Urinary tract infection Urine culture 10-50,000 of gram-positive varsha Patient is on Zosyn for antibiotics Acute renal failure on chronic kidney disease stage III, improved with IV hydration Continue IV fluids Monitor renal function Avoid nephrotoxins Chest pain, atypical, no recurrent chest pain Serial cardiac enzymes which have been reviewed by me over the last 12 hours were negative Serial EKGs which reviewed by myself show right bundle branch block without any changes Patient ruled out for any acute coronary event at this time. Discussed with the patient, the possible need for further workup to include stress test and possible cardiac catheterization. Patient states that she does not want to undergo any cardiac catheterization or any invasive procedure. I discussed with her medical management for her chest discomfort, she is in agreement Continue aspirin, unable to use beta shaun due to bradycardia, nitroglycerin as needed Hypertension, blood pressure running high yesterday, however normal this morning Home medications have been continued Hyperlipidemia Continue statin LDL 86 DVT prevention Lovenox Written by Willard Turner PA-C, acting as scribe for Dr. Haque on on 10/02/16 at 1140. The documentation accurately reflects the work and decisions performed face-to- face by Dr. Haque on on 10/02/16 at 1140. Discharge Planning Discharge home in stable condition Willard Turner Oct 02, 2016 09:46
[2016-10-02] MEDS ORDERED: BISACODYL 10 MG SUPP RECTAL ONE (10:30)
[2016-10-02] MEDS ORDERED: LACTULOSE SYRUP 20 GM/30 ML CUP PO ONE (11:15)
[2016-10-02] MEDS ORDERED: OXYGENTANK NAS.CANULA (11:39)
[2016-10-02 12:00] VITALS: BP 127/57; PULSE 93; RESP 22; TEMP 97.6; O2SAT 94
[2016-10-02] MEDS ORDERED: CIPROFLOXACIN 500 MG TAB PO SCH (12:00)
[2016-10-02] MEDS ORDERED: metroNIDAZOLE 500 MG TAB PO SCH (14:00)
--- NOTE | 2016-10-02 14:15 | RADHPO ---
EXAM DATE/TIME: 10/02/2016 13:55 [facility] COMPARISON: No previous studies available for comparison. INDICATIONS : Chest pain with dyspnea and elevated d-dimer. DOSE: 8.5 mCi Tc99m MAA IV 1.1 mCi Tc99m DTPA aerosol MEDICAL HISTORY : Hypertension. Gastroesophageal reflux disease. Diabetes mellitus type 2. SURGICAL HISTORY : Appendectomy. ENCOUNTER: Initial ACUITY: 1 day PAIN SCALE: 3/10 LOCATION: Left chest TECHNIQUE: Following five minutes of tidal breathing of DTPA aerosol, planar images of the lungs were performed in eight projections. The patient was then injected with MAA, and eight-view perfusio n scan was performed. FINDINGS: There is a homogeneous pattern of aerosol delivery to the periphery of both lungs. No focal ventilat ory defects are seen. The perfusion lung scan demonstrates a homogenous pattern of uptake in both lungs. No segmental or s ubsegmental defects are seen. CONCLUSION: Low probability for pulmonary embolism. Walter Mena MD FACR on October 02, 2016 at 14:13 Board Certified Radiologist. This report was verified electronically.
[2016-10-02] MEDS ORDERED: ASPI81TA11 PO (14:49)
[2016-10-02] MEDS ORDERED: CIPR-9 PO (14:49)
[2016-10-02] MEDS ORDERED: NIFE10 PO (14:49)
[2016-10-02] MEDS ORDERED: METR-1 PO (14:49)
--- NOTE | 2016-10-02 14:49 | HHI.DCPOC ---
Discharge Care Plan Diagnosis: (1) Diverticulitis (2) Chest pain (3) Diarrhea in adult patient (4) Hypoxia Goals to Promote Your Health * To prevent worsening of your condition and complications * To maintain your health at the optimal level Directions to Meet Your Goals Take your medications as prescribed Follow your dietary instruction Follow activity as directed Keep your appointments as scheduled Take your immunizations and boosters as scheduled If your symptoms worsen call your PCP, if no PCP go to Urgent Care Center or Emergency Room Smoking is Dangerous to Your Health. Avoid second hand smoke Call the 24-hour hour crisis hotline for domestic abuse at Willard Turner Oct 02, 2016 14:49
--- NOTE | 2016-10-02 15:04 | HHI.DS ---
cc: Bony Phillips MD Discharge Summary Admission Date Sep 29, 2016 at 13:30 Discharge Date: Oct 02, 2016 Admitting Diagnosis Chest Pain (1) Diverticulitis ICD Code: K57.92 Diagnosis: Principal (2) Chest pain ICD Code: R07.9 Diagnosis: Principal (3) Diarrhea in adult patient ICD Code: R19.7 Diagnosis: Principal (4) Acute on chronic kidney disease, stage 3 ICD Code: N18.3 Diagnosis: Principal (5) Leucocytosis ICD Code: D72.829 Diagnosis: Principal (6) Hypertension ICD Code: I10 Diagnosis: Secondary (7) Diabetes ICD Code: E11.9 Diagnosis: Secondary Procedures None Brief History - From Admission 81-year-old female who lives by herself with known history of hypertension, diabetes, hyperlipidemia who presented to hospital because of over week history of abdominal discomfort whenever she eats, diarrhea. Information was taken from patient and son at bedside. As indicated by his son that he has been calling and check in on his mother because she is not been doing well since with the abdominal pain, diarrhea. She's not been eating because she was scared to eat because she eats a causing her to have abdominal pain and diarrhea. When he called her yesterday she also indicated that she is having some chest discomfort located in the upper chest region in the middle part of the chest without any radiation, nausea, vomiting, diaphoresis, shortness of breath, dyspnea. Patient indicates that the pain is 8 /10 on a pain scale, and remained constant from yesterday morning until she came to the hospital for evaluation. Because of those above reasons Caesar the hospital for evaluation. Workup does indicate leukocytosis, diverticulitis by CT scan. Initial cardiac enzymes were unremarkable. Patient does have increased risk factors for cardiac disease to include age, female, hypertension , hypokalemia, diabetes. I discussed with her possible need for stress test for further delineation. However she states that she would not want any intervention done. She is in agreement to pursue medical management only. At the present time the patient does look rather pale, lethargic, has not ate much in the last few days. Patient readmitted for continued management and care CBC/BMP: 10/02/16 0603 10/02/16 0603 Significant Findings Laboratory Tests Test 09/30/16 10/01/16 10/01/16 10/02/16 05:15 05:01 11:25 06:03 White Blood Count 21.2 TH/MM3 15.2 TH/MM3 14.1 TH/MM3 (4.0-11.0) (4.0-11.0) (4.0-11.0) Red Blood Count 3.76 MIL/MM3 3.65 MIL/MM3 3.54 MIL/MM3 (4.00-5.30) (4.00-5.30) (4.00-5.30) Hemoglobin 11.3 GM/DL 10.9 GM/DL 10.4 GM/DL (11.6-15.3) (11.6-15.3) (11.6-15.3) Hematocrit 33.1 % 32.4 % 31.5 % (35.0-46.0) (35.0-46.0) (35.0-46.0) Neutrophils (%) (Auto) 89.6 % 87.0 % 86.0 % (16.0-70.0) (16.0-70.0) (16.0-70.0) Lymphocytes (%) (Auto) 3.6 % 6.5 % 6.9 % (9.0-44.0) (9.0-44.0) (9.0-44.0) Neutrophils # (Auto) 19.0 TH/MM3 13.2 TH/MM3 12.2 TH/MM3 (1.8-7.7) (1.8-7.7) (1.8-7.7) Lymphocytes # (Auto) 0.8 TH/MM3 (1.0-4.8) Monocytes # (Auto) 1.4 TH/MM3 (0-0.9) Creatinine 1.50 MG/DL 1.50 MG/DL 1.70 MG/DL (0.50-1.00) (0.50-1.00) (0.50-1.00) Estimat Glomerular Filtration 33 ML/MIN (>89) 33 ML/MIN (>89) 29 ML/MIN (>89) Rate Random Glucose 141 MG/DL (74-106) Calcium Level 8.2 MG/DL 7.6 MG/DL 8.2 MG/DL (8.5-10.1) (8.5-10.1) (8.5-10.1) Magnesium Level 1.4 MG/DL (1.5-2.5) Blood Gas Oxygen Saturation 86 % (90-100) Arterial Blood pH 7.47 (7.380-7.420) Arterial Blood Partial 31 mmHG (38-42) Pressure CO2 Arterial Blood Partial 52 mmHG Pressure O2 (61-120) Blood Gas Hemoglobin 11.2 G/DL (12.0-16.0) Potassium Level 3.4 MEQ/L (3.5-5.1) Blood Urea Nitrogen 20 MG/DL (7-18) Test 10/02/16 11:14 D-Dimer Quantitative (PE/DVT) 2.20 MG/L FEU (0.00-0.50) Imaging Last Impressions Lung Scan-V Nuclear Medicine 10/02/16 1150 Signed Impressions: Service Date/Time: Sunday, October 02, 2016 13:55 - CONCLUSION: Low probability for pulmonary embolism. Walter Mena MD FACR Chest X-Ray 10/01/16 0000 Signed Impressions: Service Date/Time: Saturday, October 01, 2016 10:07 - CONCLUSION: 1. Cardiomegaly with basal atelectasis. Elevated right hemidiaphragm. Flex Wong MD Abdomen/Pelvis CT 09/28/16 1852 Signed Impressions: Service Date/Time: Wednesday, September 28, 2016 19:35 - CONCLUSION: Sigmoid diverticulitis. Daniel Rivera MD PE at Discharge GENERAL: Well-developed, well-nourished, in no acute distress. alert and orientated HEENT: Head is normocephalic without any lesions or masses noted. Facial features are symmetric. Eyes: Extraocular muscles are intact. Conjunctivae were clear. NECK: Supple without any masses. Trachea midline no deviation. No JVD, CARDIAC: Regular rhythm, regular rate. S1/S2 are heard. No murmurs gallops or rubs. LUNGS: Clear to auscultation bilaterally. No wheeze, rhonchi or rales. No use of accessory muscles on inspiration or expiration. ABDOMEN: Soft, nontender. Nondistended. Bowel sounds heard in all 4 quadrants. No organomegaly or masses. Negative rebound, negative guarding EXTREMITIES: No edema, pulses are equal bilaterally. No cyanosis or clubbing NEUROLOGY: Mood and affect appear appropriate. Cranial nerves II through XII grossly intact. Moving all extremities, speech is clear Hospital Course 81-year-old female who recently presented to hospital because of diarrhea illness, lower abdominal pain. Patient did have episode of chest discomfort in the upper chest region without any radiation, nausea, vomiting, diaphoresis, shortness of breath. Patient had workup done in emergency department and found to have diverticulitis by CT scan, leukocytosis possible urinary tract infection and subsequently admitted for further evaluation and management. She was started on antibiotics to include Zosyn. It was initially indicated patient had diarrhea illness for at least 2 weeks prior to coming in the hospital, however patient did not have a bowel movement during her stay in the hospital. Until the last day after given stool softener and Dulcolax. Originally stool cultures were ordered however because she was not able to give any stool those are discontinued. Patient laboratory studies were monitored with improvement of her leukocytosis after 3 days of antibiotics. Patient did have one day history of chest discomfort which is atypical. Serial cardiac enzymes were performed and were negative, serial EKGs were performed which did not indicate any changes. Discussed results with the patient and she states she now want any further workup done or any intervention. Patient was not highly motivated. Previously around in bed all day did not get up to a chair. Patient was found to have some mild hypoxemia with O2 sats of 87%. X-ray was performed which did indicate atelectasis, did not indicate any infiltrates or edema. D-dimer was performed which was elevated and VQ scan was done subsequently showing only low probability for pulmonary emboli. Patient was started on incentive spirometry which did help with her oxygenation, however study does indicate she requires home oxygen. Case management was consulted and home oxygen is being arranged. Patient is clinically stable this time. Pt Condition on Discharge: Stable Discharge Disposition: Disch w/ Home Health Serv Discharge Time: > 30 minutes Discharge Instructions DIET: Follow Instructions for: Heart Healthy Diet, Diabetic Diet Activities you can perform: Regular-No Restrictions Activities to Avoid: Driving for 24 hrs Follow up Referrals: PCP Follow-up - 2-3 Days New Medications: Oxygen tank (Oxygen tank) 1 Ea Tank 2 LITER STEVEN.CANULA CONTINUOUS Oxygen Concentrator Portable Gaseous 2 L/min via Nasal Cannula Continuous For 99 months HYPOXEMIA PREVENTION #[address] (Aspirin EC) 81 Mg Tabdr 81 MG PO DAILY cardiac protection #30 TAB Ciprofloxacin (Cipro) 500 Mg Tab 500 MG PO Q18H diverticulitis Days 10 TAB Metronidazole (Flagyl) 500 Mg Tab 500 MG PO Q8HR diverticulitis Days 10 TAB Nifedipine (Procardia) 10 Mg Cap 30 MG PO BID Blood Pressure Management Days 30 CAP Continued Medications: Glipizide (Glipizide) 5 Mg Tab 5 MG PO BIDAC Take 30 minutes before a meal Blood Sugar Management #60 Ref 0 TAB Insulin Glargine Inj (Lantus Inj) 1,000 Unit/10 Ml Vial 25 UNITS SQ HS Blood Sugar Management Ref 0 VIAL Lisinopril (Lisinopril) 20 Mg Tab 20 MG PO DAILY #30 Ref 0 TAB Simvastatin (Simvastatin) 40 Mg Tab 40 MG PO HS Cholesterol Management #30 Ref 0 TAB Additional Information Written by Willard Turner PA-C, acting as scribe for Dr. Haque on 10/02/16 at 1500. The documentation accurately reflects the work and decisions performed face-to- face by Dr. Haque on 10/02/16 at 1500. Willard Turner Oct 02, 2016 15:04
== END 2016-10-02 16:32 | disposition home health service (06) | DRG 392 ==
LOC: PHED 18:30 → PHEDA 21:34 → PHEDH 09-29 01:34 → PH3A 09-29 12:05 → OBSVTOIN 09-29 13:30
PROVIDERS: ADMIT Family Medicine; ATTEND Family Medicine
DX: K57.32 Diverticulitis of large intestine without perforation or abscess without bleeding (principal); N17.9 Acute kidney failure, unspecified; I45.2 Bifascicular block; N39.0 Urinary tract infection, site not specified; J98.11 Atelectasis; E11.22 Type 2 diabetes mellitus with diabetic chronic kidney disease; N18.3 Chronic kidney disease, stage 3 (moderate); I12.9 Hypertensive chronic kidney disease with stage 1 through stage 4 chronic kidney disease, or unspecified chronic kidney disease; E78.5 Hyperlipidemia, unspecified; H91.90 Unspecified hearing loss, unspecified ear; R07.89 Other chest pain; R09.02 Hypoxemia; E87.6 Hypokalemia; Z79.01 Long term (current) use of anticoagulants
CPT/HCPCS: 36600; 71010; 74176; 78582; 80048; 80053; 80061; 81001; 82550; 82805; 82948; 83605; 83690; 83735; 84484; 85025; 85379; 85610; 85730; 87086; 93005; 94150; 94620; 94640; 94664; A9540; A9567; G0378; G8987-GP; G8988-GP; J1650; J1815; J1940; J2405; J2543; J7030